=== PATIENT | female | born 2005 | race Asian ===

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

== ENCOUNTER 2024-08-30 09:17 | Emergency (ER) | payer OTHER ==
[~2024-08-30] VITALS: Ht 157.5 cm; Wt 59.1 kg
[2024-08-30 09:24] VITALS: TEMP 98.2
[2024-08-30 09:51] LABS: BASOPHILS % (AUTO) 0.1 % (0.0-2.0); EOSINOPHILS % (AUTO) 1.3 % (1.0-6.0); HEMATOCRIT 45.8 % (36-46); HEMOGLOBIN 15.9 g/dL (12.0-16.0); LYMPHOCYTES # (AUTO) 0.9 K/uL (1.0-4.8); LYMPHOCYTES % (AUTO) 5.5 % (22.0-44.0); MEAN CORPUSCULAR HEMOGLOBIN 30.4 pg (26.0-34.0); MEAN CORPUSCULAR HGB CONC 34.7 G/dL (31.0-37.0); MEAN CORPUSCULAR VOLUME 88 fL (80-100); MONOCYTES # (AUTO) 0.9 K/uL (0.1-1.0); MONOCYTES % (AUTO) 5.6 % (2.0-9.0); NEUTROPHILS # (AUTO) 14.7 K/uL (1.8-7.7); NEUTROPHILS % (AUTO) 87.5 % (40.0-70.0); PLATELET COUNT (AUTO) 291 K/uL (150-450); RED BLOOD CELL COUNT(AUTO) 5.22 MIL/uL (4.00-5.20); WHITE BLOOD COUNT (AUTO) 16.8 K/uL (4.5-11.0)
[2024-08-30 10:00] LABS: CALCIUM, TOTAL 9.3 mg/dL (8.8-10.5); CREATININE 1.16 mg/dL (0.60-1.30); POTASSIUM 3.5 mmol/L (3.5-5.1)
[2024-08-30] MEDS: DIPHENOXYLATE/ATROP 2.5-0.025 MG TABLET PO ONE (10:02)
[2024-08-30] MEDS: ONDANSETRON HCL 4 MG/2 ML VIAL IVP ONE (10:02)
[2024-08-30] MEDS: SODIUM CHLORIDE 0.9% 500 ML IV ONE ×2 (10:02→10:23)
[2024-08-30 10:09] LABS: RBC MORPHOLOGY COMMENT NORMAL RBC MORPH
[2024-08-30] MEDS: CIPROFLOXACIN HCL 250 MG TABLET PO ONE (10:36)
[2024-08-30 10:42] LABS: INFLUENZA TYPE A NEGATIVE FOR TYPE A (NEGATIVE); INFLUENZA TYPE B NEGATIVE FOR TYPE B (NEGATIVE)
[2024-08-30 11:35] VITALS: BP 118/70; PULSE 78; RESP 16; O2SAT 98
[2024-08-30] MEDS ORDERED: ONDA-104 PO (11:39)
== END 2024-08-30 12:03 | disposition home or self-care (01) ==
LOC: EMS 09:26
DX: E86.0 Dehydration (principal); R19.7 Diarrhea, unspecified; R11.2 Nausea with vomiting, unspecified; F12.90 Cannabis use, unspecified, uncomplicated; J45.909 Unspecified asthma, uncomplicated
CPT/HCPCS: 99283; 96374; 96361; 80048; 85025; 87804; 36415; J2405; J7040

== ENCOUNTER 2024-12-25 12:46 | Emergency (ER) | payer OTHER ==
[~2024-12-25] VITALS: Ht 154.9 cm; Wt 59.4 kg
[~2024-12-25 12:46] MED LIST changes: -MOTRIN; +ONDA-104 PO; -TYL
[2024-12-25 12:52] VITALS: BP 113/68; PULSE 77; RESP 18; TEMP 97.9; O2SAT 97
[2024-12-25] MEDS: IBUPROFEN 400 MG TABLET PO ONE (14:50)
== END 2024-12-25 15:59 | disposition home or self-care (01) ==
LOC: EMS 14:53
DX: S86.112A Strain of other muscle(s) and tendon(s) of posterior muscle group at lower leg level, left leg, initial encounter (principal); F12.90 Cannabis use, unspecified, uncomplicated; J45.909 Unspecified asthma, uncomplicated; X58.XXXA Exposure to other specified factors, initial encounter; Y93.01 Activity, walking, marching and hiking; Y92.89 Other specified places as the place of occurrence of the external cause; Y99.8 Other external cause status
CPT/HCPCS: 93971; 99284; Z7502; Z7610